=== PATIENT | male | born 1930 | race Caucasian/White ===

== ENCOUNTER 2019-02-09 11:05 | Emergency (ER) | payer MEDICARE, OTHER ==
[~2019-02-09] VITALS: Ht 177.8 cm; Wt 83.5 kg
[2019-02-09 11:24] VITALS: BP 171/80
== END 2019-02-09 12:50 | disposition home or self-care (01) ==
LOC: ED 12:40
DX: M25.562 Pain in left knee (principal); X58.XXXA Exposure to other specified factors, initial encounter; Y93.89 Activity, other specified; Y92.89 Other specified places as the place of occurrence of the external cause; Y99.8 Other external cause status
CPT/HCPCS: 99283

== ENCOUNTER → 2019-04-24 | Outpatient (CLI) | payer MEDICARE, OTHER | END | disposition home or self-care (01) | LOC: RAD 10:53 | PROVIDERS: ATTEND Orthopaedic Surgery | DX: R22.42 Localized swelling, mass and lump, left lower limb (principal) ==

== ENCOUNTER 2019-05-22 05:45 | Inpatient (IN) | payer MEDICARE, OTHER ==
[~2019-05-22] VITALS: Ht 177.8 cm; Wt 79.1 kg
[2019-05-23 06:39] VITALS: BP 118/66
== END 2019-05-23 14:28 | disposition home or self-care (01) | DRG 57 ==
LOC: ED 07:49 → EDIP 07:50 → ED 08:11 → 3NE 09:18
PROVIDERS: ADMIT Internal Medicine; ATTEND Internal Medicine
DX: G31.84 Mild cognitive impairment of uncertain or unknown etiology (principal); D32.9 Benign neoplasm of meninges, unspecified; R26.9 Unspecified abnormalities of gait and mobility; H40.9 Unspecified glaucoma; D75.89 Other specified diseases of blood and blood-forming organs; D69.6 Thrombocytopenia, unspecified; R73.9 Hyperglycemia, unspecified
CPT/HCPCS: 36415; 70450; 71045; 80053; 81003; 83735; 84443; 84484; 85025; 85610; 85730; 93005; G0378; 92523-GN; G0515-GN

== ENCOUNTER → 2020-05-01 | Outpatient (CLI) | payer MEDICARE, OTHER ==
[~2020-05-01] MED LIST: ASPI-515 PO; glaucoma eye drops EACHEYE
[2020-05-01 09:02] LABS: ALANINE AMINOTRANSFERASE 38 U/L (12-78); ALBUMIN 3.9 g/dL (3.4-5.0); ANION GAP 6 mmol/L (5-15); CHLORIDE 108 mmol/L (98-107)
[2020-05-01 09:04] LABS: ALKALINE PHOSPHATASE 75 U/L (45-117); BILIRUBIN,TOTAL 0.8 mg/dL (0.2-1.0); CHOL/HDL RATIO 2.4; CHOLESTEROL, TOTAL 128 mg/dL (140-239); CREATININE 0.83 mg/dL (0.7-1.3); HDL CHOL % 41 % (26-37); HDL CHOLESTEROL (DIRECT) 53 mg/dL (40-60); LDL CHOLESTEROL,CALCULATED 54 mg/dL (54-169); TOTAL PROTEIN 7.6 g/dL (6.4-8.2); TRIGLYCERIDES 107 mg/dL (50-200); VLDL CHOLESTEROL 21 mg/dL (0-25)
== END | disposition home or self-care (01) ==
LOC: LAB 08:26
PROVIDERS: ATTEND Internal Medicine Cardiovascular Disease
DX: G43.909 Migraine, unspecified, not intractable, without status migrainosus (principal); E78.00 Pure hypercholesterolemia, unspecified; E78.5 Hyperlipidemia, unspecified; G31.84 Mild cognitive impairment of uncertain or unknown etiology; G43.B0 Ophthalmoplegic migraine, not intractable; G47.00 Insomnia, unspecified; I49.3 Ventricular premature depolarization; J90 Pleural effusion, not elsewhere classified; M54.2 Cervicalgia; N18.6 End stage renal disease
CPT/HCPCS: 36415; 80053; 80061

== ENCOUNTER → 2020-11-19 | Outpatient (CLI) | payer MEDICARE, OTHER | END | disposition home or self-care (01) | LOC: CFH 11:39 | PROVIDERS: ATTEND Internal Medicine Cardiovascular Disease | DX: I08.0 Rheumatic disorders of both mitral and aortic valves (principal); E78.5 Hyperlipidemia, unspecified | CPT/HCPCS: 93306; 93356 ==